=== PATIENT | male | born 1965 | race Caucasian/White ===

== ENCOUNTER 2018-09-24 13:21 | Emergency (ER) | payer MEDICAID ==
[~2018-09-24] VITALS: Ht 177.8 cm; Wt 95.0 kg
[2018-09-24 14:42] LABS: BASOPHILS % 0.5 % (0.0-2.0); EOSINOPHILS % 2.4 % (0.0-5.0); HEMATOCRIT. 47.5 % (42.0-52.0); HEMOGLOBIN. 15.7 g/dL (14.0-18.0); LYMPHOCYTES % 24.3 % (20.0-50.0); MEAN CORPUSCULAR HEMOGLOBIN 28.4 pg (28.0-32.0); MEAN CORPUSCULAR VOLUME 85.6 fL (80.0-94.0); MEAN PLATELET VOLUME 8.8 fl (7.4-10.4); MONOCYTES % 5.5 % (2.0-8.0); NEUTROPHILS % 67.3 % (40.0-76.0); PLATELET 240 x1000/uL (130-400); RED BLOOD CELL COUNT 5.55 mill/uL (4.7-6.1); RED CELL DISTRIBUTION WIDTH 13.5 % (11.6-14.6)
[2018-09-24 14:47] LABS: CHLORIDE 99 mEq/L (98-107)
[2018-09-24] MEDS ORDERED: SODIUM CHLORIDE 0.9% 1,000 ML IV ONE (15:17)
[2018-09-24] MEDS ORDERED: ASPIRIN 325MG EC TABLET PO ONE (15:30)
[2018-09-24] MEDS ORDERED: INSULIN REGULAR (HUMULIN R) 300UNITS/3ML IV ONE (15:30)
[2018-09-24 17:20] VITALS: BP 112/61
== END 2018-09-24 17:38 | disposition left against medical advice (07) ==
LOC: ER 16:23 → CANBEDREQ 18:29
DX: R07.89 Other chest pain (principal); I25.810 Atherosclerosis of coronary artery bypass graft(s) without angina pectoris; E11.9 Type 2 diabetes mellitus without complications; I10 Essential (primary) hypertension
CPT/HCPCS: 36415; 71045; 73620; 80053; 83880; 84484; 85025; 93005; 96374; 99284; J1815; J7030